=== PATIENT | female | born 1960 | race Caucasian/White ===

== ENCOUNTER → 2017-02-24 | Outpatient (CLI) | payer BC ==
[~2017-02-24] MED LIST: ASPIR-LOW81 MG PO; DOXYCYCLINE 10100 MG PO; LEVAQUIN 5500 MG/TA1 PO; LORTAB 5/500 501 TAB PO
== END ==
LOC: MC.RAD 13:42
DX: Z12.31 Encounter for screening mammogram for malignant neoplasm of breast (principal)